=== PATIENT | male | born 1950 | race Caucasian/White ===

== ENCOUNTER 2017-06-06 05:20 | Emergency (ER) | payer MEDICARE, OTHER ==
[~2017-06-06] VITALS: Ht 175.3 cm; Wt 106.8 kg
[2017-06-06 05:53] VITALS: BP 109/74
== END 2017-06-06 07:26 | disposition home or self-care (01) ==
LOC: ER 05:21
DX: R20.2 Paresthesia of skin (principal); R20.0 Anesthesia of skin
CPT/HCPCS: 99283